=== PATIENT | female | born 2000 | race Caucasian/White ===

== ENCOUNTER 2020-06-16 21:04 | Outpatient (CLI) | payer MEDICAID ==
[2020-06-16] MEDS ORDERED: LACTATED RINGERS 1,000 ML IV ONE (21:48)
[2020-06-16 22:04] LABS: Bacteria,Urine 4+ /HPF (Negative); Bilirubin,Urine NEG (Negative); Blood,Urine NEG (Negative); Color,Urine Straw (Yellow); Mucus,Urine FEW /HPF; Protein,Urine <15 mg/dL mg/dL (Negative); Urobilinogen,Urine < 2.0 mg/dL (<2.0)
[2020-06-16 22:32] VITALS: BP 110/63
[2020-06-17] MEDS ORDERED: NITROFURANTOIN MONOHYD/M-CRYST 100 MG CAP PO ONE (00:25)
== END 2020-06-17 00:20 | disposition home or self-care (01) ==
LOC: TRG 21:04 → APU 21:06 → TRG 06-17 00:20
PROVIDERS: ATTEND Obstetrics & Gynecology
DX: O26.893 Other specified pregnancy related conditions, third trimester (principal); R10.30 Lower abdominal pain, unspecified; M54.5 Low back pain; Z3A.35 35 weeks gestation of pregnancy
CPT/HCPCS: 59025; 81001; 87076; 87086; 87186